=== PATIENT | female | born 1990 | race African-American/Black ===

== ENCOUNTER 2020-06-01 06:20 | Emergency (ER) | payer MEDICAID, OTHER ==
[~2020-06-01] VITALS: Ht 152.4 cm; Wt 57.0 kg
[2020-06-01 06:46] VITALS: BP 136/78
[2020-06-01] MEDS ORDERED: TOPUD PO (07:09)
== END 2020-06-01 07:53 | disposition home or self-care (01) ==
LOC: ER 06:20
DX: S01.01XA Laceration without foreign body of scalp, initial encounter (principal); J45.909 Unspecified asthma, uncomplicated; Y08.89XA Assault by other specified means, initial encounter; Y93.89 Activity, other specified; Y92.9 Unspecified place or not applicable; Z88.2 Allergy status to sulfonamides
CPT/HCPCS: 12001; 99283; Z7610